=== PATIENT | male | born 1945 | race Caucasian/White ===

== ENCOUNTER 2024-02-14 10:30 | Emergency (ER) | payer OTHER ==
[2024-02-14 11:19] VITALS: RESP 16; TEMP 99.1; BMI 32.8
[2024-02-14] MEDS: SODIUM CHLORIDE 1,000 ML IV ONE (11:30)
[2024-02-14 11:48] LABS: HEMATOCRIT 40.5 % (35.4-49); HEMOGLOBIN 13.2 G/dL (11.7-16.9); MCH 31.2 pg (25.7-33.7); MCHC 32.5 g/dl (32.0-35.9); MEAN CELL VOLUME 95.7 fl (80-96); MEAN PLT VOLUME 8.8 fl (7.5-11.1); PLATELET COUNT 170.1 10^3/uL (134-434); RBC 4.23 10^6/uL (4.00-5.60); RDW 13.9 % (11.9-15.9); WHITE BLOOD COUNT 6.5 10^3/uL (4.0-10.8)
[2024-02-14 11:52] LABS: PLATELET ESTIMATE ADEQUATE
[2024-02-14 11:55] LABS: ALBUMIN 4.5 g/dl (3.4-5.0); BILIRUBIN,TOTAL 0.3 mg/dl (0.2-1); CALCIUM 8.9 mg/dl (8.5-10.1); CREATININE 1.1 mg/dl (0.6-1.3); POTASSIUM 4.3 mmol/L (3.5-5.1); TOT PROT 7.1 g/dl (6.4-8.2)
[2024-02-14 13:01] VITALS: BP 125/67; PULSE 67
[2024-02-14] MEDS: ACETAMINOPHEN 325 MG TABLET (FP) PO ONE (14:03)
== END 2024-02-14 13:35 | disposition home or self-care (01) ==
LOC: FER 10:30
PROC: 3E0337Z Introduction of Electrolytic and Water Balance Substance into Peripheral Vein, Percutaneous Approach (ICD-10-PCS; principal; 2024-02-14)
DX: S00.03XA Contusion of scalp, initial encounter (principal); R55 Syncope and collapse; R42 Dizziness and giddiness; R51.9 Headache, unspecified; X58.XXXA Exposure to other specified factors, initial encounter
CPT/HCPCS: 36415; 70450-TC; 71045-TC-FY; 80053; 84484; 85027; 93005; 99284-25